=== PATIENT | female | born 1955 | race Caucasian/White ===

== ENCOUNTER 2020-07-24 16:07 | Emergency (ER) | payer OTHER ==
[2020-07-24 16:26] VITALS: BMI 31.2
[2020-07-24] MEDS ORDERED: ACETAMINOPHEN 1000 MG/100 ML VIAL (NON FORMULARY) IVPB ONE (16:59)
[2020-07-24] MEDS ORDERED: ACETAMINOPHEN INJECTION 100 ML IVPB ONE (17:15)
[2020-07-24] MEDS ORDERED: ONDANSETRON 4 MG/2 ML VIAL IVPUSH ONE (17:16)
[2020-07-24] MEDS ORDERED: ONDANSETRON 4 MG/2 ML VIAL ONE (17:44)
[2020-07-24 18:05] LABS: BASO % 0.5 % (0-2.0); EOS % 0.3 % (0-4.5); HEMATOCRIT 40.9 % (32.4-45.2); HEMOGLOBIN 13.5 GM/dL (10.7-15.3); LYMPH % 8.7 % (8-40); MCH 26.5 pg (25.7-33.7); MCHC 33.1 g/dl (32.0-36.0); MEAN CELL VOLUME 80.1 fl (80-96); MEAN PLT VOLUME 10.1 fl (7.5-11.1); MONO % 2.8 % (3.8-10.2); NEUT % 87.7 % (42.8-82.8); PLATELET COUNT 275 K/MM3 (134-434); RBC 5.11 M/mm3 (3.60-5.2); RDW 14.3 % (11.6-15.6); WHITE BLOOD COUNT 8.5 K/mm3 (4.0-10.0)
[2020-07-24 18:10] LABS: PH,URINE 5.5 (5.0-8.0); URINE APPEARANCE CLOUDY; URINE BILIRUBIN NEGATIVE (NEGATIVE); URINE COLOR YELLOW; URINE GLUCOSE (UA) NEGATIVE (NEGATIVE); URINE KETONE NEGATIVE (NEGATIVE); URINE LEUK ESTERASE NEGATIVE (NEGATIVE); URINE NITRITE NEGATIVE (NEGATIVE); URINE PROTEIN NEGATIVE (NEGATIVE)
[2020-07-24 18:23] LABS: CHLORIDE 107 mmol/L (98-107); SODIUM 141 mmol/L (136-145)
[2020-07-24 18:25] LABS: CALCIUM 8.4 mg/dL (8.5-10.1)
[2020-07-24 18:26] LABS: ANION GAP 7 MMOL/L (8-16); BLOOD UREA NITROGEN 15.2 mg/dL (7-18); CO2 27 mmol/L (21-32); GLUCOSE,RANDOM 148 mg/dL (74-106); LIPASE 99 U/L (73-393); MAGNESIUM 1.6 mg/dL (1.8-2.4)
[2020-07-24 18:29] LABS: CREATININE 0.9 mg/dL (0.55-1.3); SGOT/AST 53 U/L (15-37); SGPT/ALT 62 U/L (13-61)
[2020-07-24 18:30] LABS: BILIRUBIN,TOTAL 0.5 mg/dL (0.2-1); TOT PROT 8.4 g/dl (6.4-8.2)
[2020-07-24 18:32] LABS: ALK PHOS 151 U/L (45-117)
[2020-07-24 20:21] VITALS: BP 120/77; PULSE 84; TEMP 98
== END 2020-07-24 21:08 | disposition home or self-care (01) ==
LOC: JER 16:07
PROC: 3E033GC Introduction of Other Therapeutic Substance into Peripheral Vein, Percutaneous Approach (ICD-10-PCS; principal; 2020-07-24)
DX: K52.9 Noninfective gastroenteritis and colitis, unspecified (principal)
CPT/HCPCS: 36415; 71045-TC-FY; 74177-TC; 80053; 81003; 82550; 82553; 83605; 83690; 83735; 84484; 85025; 87086; 93005; 93010; 99285-25; C9803; J0131; Q9967; U0003; U0005

== ENCOUNTER 2021-07-31 22:17 | Emergency (ER) | payer OTHER ==
[2021-07-31 22:46] VITALS: BP 187/71; PULSE 85; TEMP 100; BMI 27.4
[2021-08-01] MEDS ORDERED: ACETAMINOPHEN 500 MG TABLET (FP) PO ONE (01:26)
[2021-08-01] MEDS ORDERED: ACETAMINOPHEN 325 MG TABLET (FP) PO ONE (01:27)
[2021-08-01] MEDS ORDERED: ACETAMINOPHEN 325 MG TABLET (FP) ONE (01:31)
[2021-08-01 03:35] LABS: BASO % 0.3 % (0-2.0); EOS % 1.8 % (0-4.5); HEMATOCRIT 36.4 % (32.4-45.2); HEMOGLOBIN 11.9 GM/dL (10.7-15.3); LYMPH % 19.5 % (8-40); MCH 25.7 pg (25.7-33.7); MCHC 32.7 g/dl (32.0-36.0); MEAN CELL VOLUME 78.6 fl (80-96); MEAN PLT VOLUME 9.6 fl (7.5-11.1); MONO % 10.8 % (3.8-10.2); NEUT % 67.6 % (42.8-82.8); PLATELET COUNT 251 10^3/uL (134-434); RBC 4.63 M/mm3 (3.60-5.2); RDW 14.3 % (11.6-15.6); WHITE BLOOD COUNT 6.4 K/mm3 (4.0-10.0)
[2021-08-01 03:41] LABS: INR 1.09 (0.83-1.09); PROTHROMBIN TIME (PATIENT) 12.5 SEC (9.7-13.0)
[2021-08-01 03:43] LABS: ACTIVATED PTT 28.7 SECONDS (25.2-36.5)
[2021-08-01 03:54] LABS: CALCIUM 8.8 mg/dL (8.5-10.1)
[2021-08-01 03:55] LABS: ALBUMIN 3.8 g/dl (3.4-5.0); BLOOD UREA NITROGEN 13.5 mg/dL (7-18)
[2021-08-01 03:58] LABS: CREATININE 0.8 mg/dL (0.55-1.3)
[2021-08-01 03:59] LABS: BILIRUBIN,TOTAL 0.4 mg/dL (0.2-1); TOT PROT 7.6 g/dl (6.4-8.2)
== END 2021-08-01 05:20 | disposition left against medical advice (07) ==
LOC: JER 22:17
DX: R50.9 Fever, unspecified (principal); R05.1 Acute cough; R10.9 Unspecified abdominal pain
CPT/HCPCS: 0241U-QW; 36415; 71045-TC-FY; 80053; 84484; 85025; 85610; 85730; 93005; 93010; 99285-25